=== PATIENT | male | born 1970 | race Caucasian/White ===

== ENCOUNTER 2023-04-17 15:02 | Inpatient (IN) | payer OTHER ==
[2023-04-17 15:21] VITALS: BMI 27.3
[2023-04-17] MEDS ORDERED: MAGNESIUM HYDROX 2400MG/30ML ORAL SUSPENSION 30 ML CUP PO PRN (18:41)
[2023-04-17] MEDS ORDERED: BISMUTH SUBSALICYLATE 524 MG/30 ML PO PRN (18:41)
[2023-04-17] MEDS ORDERED: NALOXONE HCL (KLOXXADO) 8 MG SPRAY NS PRN (18:41)
[2023-04-17] MEDS ORDERED: ACETAMINOPHEN 325 MG TABLET (FP) PO PRN (18:41)
[2023-04-17] MEDS ORDERED: IBUPROFEN 400 MG TABLET (FP) PO PRN (18:41)
[2023-04-17] MEDS ORDERED: guaiFENesin 600 MG TABLET.ER (FP) PO PRN (18:41)
[2023-04-17] MEDS ORDERED: ONDANSETRON *ODT* 4 MG TABLET SL PRN (18:41)
[2023-04-17] MEDS ORDERED: BENZONATATE 200 MG CAPSULE PO PRN (18:41)
[2023-04-17] MEDS ORDERED: BENZOCAINE/MENTHOL (CHLORASEPTIC ) LOZENGE MM PRN (18:41)
[2023-04-17] MEDS ORDERED: DICYCLOMINE HCL 10 MG CAPSULE PO PRN (18:41)
[2023-04-17] MEDS ORDERED: LOPERAMIDE HCL 2 MG CAPSULE PO PRN (18:41)
[2023-04-17] MEDS ORDERED: NALOXONE HCL 0.4 MG/ML VIAL IM PRN (18:41)
[2023-04-17] MEDS ORDERED: MAG HYDROX/AL HYDROX/SIMETH 30 ML UNIT-DOSE CUP PO PRN (18:41)
[2023-04-17] MEDS ORDERED: POLYETHYLENE GLYCOL (HEALTHYLAX) 3350 17 GM PACKET PO PRN (18:41)
[2023-04-17] MEDS: IBUPROFEN 400 MG TABLET (FP) PO ONE (19:12)
[2023-04-17] MEDS: ACETAMINOPHEN 325 MG TABLET (FP) PO ONE (19:15)
[2023-04-17] MEDS: hydrOXYzine PAMOATE 25 MG CAPSULE (FP) PO PRN (20:40)
[2023-04-17] MEDS: METHOCARBAMOL 500 MG TABLET PO PRN (20:40)
[2023-04-17] MEDS: SILVER SULFADIAZINE 1% TOP CREAM 50 GM JAR TP SCH (23:05)
[2023-04-17] MEDS: MELATONIN 5 MG TABLETS PO SCH (23:20)
[2023-04-17] MEDS: THIAMINE HCL 100 MG TABLET (FP) PO SCH (23:20)
[2023-04-18] MEDS: IBUPROFEN 600 MG TABLET (FP) PO PRN (05:27)
[2023-04-18] MEDS: PRENATAL VITAMINS W/ FOLIC ACID TABLET (FP) PO SCH (10:01)
[2023-04-18 10:47] LABS: CHLORIDE 111 mmol/L (98-107); HEMATOCRIT 36.2 % (35.4-49); HEMOGLOBIN 12.1 GM/dL (11.7-16.9); MCH 30.7 pg (25.7-33.7); MCHC 33.5 g/dl (32.0-35.9); MEAN CELL VOLUME 91.7 fl (80-96); MEAN PLT VOLUME 7.4 fl (7.5-11.1); PLATELET COUNT 386 10^3/uL (134-434); POTASSIUM 4.5 mmol/L (3.5-5.1); RBC 3.95 M/mm3 (4.00-5.60); RDW 13.6 % (11.9-15.9); SODIUM 144 mmol/L (136-145); WHITE BLOOD COUNT 8.2 K/mm3 (4.0-10.0)
[2023-04-18 10:53] LABS: ALBUMIN 2.6 g/dl (3.4-5.0); ANION GAP 4 mmol/L (4-13); CO2 30 mmol/L (21-32); GLUCOSE,RANDOM 94 mg/dL (74-106)
[2023-04-18 10:54] LABS: CALCIUM 8.7 mg/dL (8.5-10.1)
[2023-04-18 10:56] LABS: CREATININE 0.6 mg/dL (0.55-1.3); SGPT/ALT 35 U/L (13-61)
[2023-04-18 10:57] LABS: SGOT/AST 33 U/L (15-37)
[2023-04-18 10:58] LABS: BILIRUBIN,TOTAL 0.2 mg/dL (0.2-1); TOT PROT 5.9 g/dl (6.4-8.2)
[2023-04-18 10:59] LABS: ALK PHOS 90 U/L (45-117)
[2023-04-18] MEDS: amLODIPine BESYLATE 5 MG TABLET (FP) PO SCH (15:11)
[2023-04-19 10:05] VITALS: BP 119/84; PULSE 103; RESP 18; TEMP 97.3
== END 2023-04-19 09:20 | disposition home or self-care (01) | DRG 774 ==
LOC: YASAS 15:02 → Y6N 18:42
PROVIDERS: ADMIT Allergy & Immunology; ATTEND Surgery
PROC: HZ2ZZZZ Detoxification Services for Substance Abuse Treatment (ICD-10-PCS; principal; 2023-04-17)
DX: F10.20 Alcohol dependence, uncomplicated (principal); F14.20 Cocaine dependence, uncomplicated; F12.20 Cannabis dependence, uncomplicated; F17.210 Nicotine dependence, cigarettes, uncomplicated; F19.282 Other psychoactive substance dependence with psychoactive substance-induced sleep disorder; F19.24 Other psychoactive substance dependence with psychoactive substance-induced mood disorder; I10 Essential (primary) hypertension
CPT/HCPCS: 36415; 80053; 80307; 85027; 86780; 87635; 93005; 93010